=== PATIENT | female | born 1990 | race Caucasian/White ===

== ENCOUNTER 2024-12-13 22:15 | Emergency (ER) | payer OTHER, SELFPAY ==
[2024-12-13 22:16] VITALS: BMI 39.1
[2024-12-13 22:25] VITALS: BP 124/87; PULSE 84; RESP 20; TEMP 36.9; O2SAT 96
--- NOTE | 2024-12-13 22:27 | XR_ITS ---
Examination: CT abdomen and pelvis without contrast. Coronal 3-D reconstructions. Sagittal 2-D reconstructions. Date and time of exam: December 13, 2024, 11:32 p.m. INDICATIONS: Severe flank pain, urinary tract infections 2 weeks CTDI: vol (mGy): 16 DLP: (mGycm): 968 Technique: Axial images of the abdomen have been obtained, 3 mm slice thickness Intravenous contrast material has not been administered. Low dose protocols were performed. One or more of the following dose reduction techniques were used; automated exposure control, adjustment of the mA and/or KV according to patient size, use of iterative reconstruction technique. Findings: Diffuse fatty infiltration throughout the liver No gallstones No pancreatic or adrenal mass Mild right hydronephrosis secondary to 4 mm distal right ureterovesical junction calculus Normal appendix No bowel obstruction No pelvic mass No bladder mass Intact osseous structures IMPRESSION: Mild right hydronephrosis secondary to a 4 mm distal right ureteral vesicle junction calculus
--- NOTE | 2024-12-13 22:28 | PD.EDRME ---
Rapid Medical Screening Exam RME Arrival date/time: 12/13/24 22:15 This is a case of 34-year-old female with no medical history came into the emergency room due to bilateral flank pain radiating to the abdomen associated with nausea vomiting patient was recently diagnosed with urinary tract infection finished a course of antibiotic is still with dysuria increased frequency and urgency no hematuria persistence of the symptoms this patient decided to start consult here in the emergency room Chief Complaint: Urogenital-Female Time Seen by Provider: 12/13/24 22:18 Vital signs: Vital Signs Temperature 98.4 F 12/13/24 22:25 Pulse Rate 84 12/13/24 22:25 Respiratory Rate 20 12/13/24 22:25 Blood Pressure 124/87 H 12/13/24 22:25 Pulse Oximetry (%) 96 12/13/24 22:25 Oxygen Delivery Method Room Air 12/13/24 22:25
[2024-12-13 22:52] LABS: Basophils # (Auto) 0.1 Thou/mm3 (0.0-0.2); Basophils % (Auto) 0 % (0-2.5); Eosinophils # (Auto) 0.2 Thou/mm3 (0.0-0.5); Eosinophils % (Auto) 1 % (0-10); Hematocrit 43.0 % (36.0-46.0); Hemoglobin 14.8 g/dL (12.0-16.0); Immature Granulocytes Auto 0.03 Thou/mm3 (0.00-0.00); Lymphocytes # (Auto) 2.3 Thou/mm3 (1.0-4.8); Lymphocytes % (Auto) 18 % (10-50); Mean Corpuscular HGB Conc 34.4 g/dl (31.0-37.0); Mean Corpuscular Hemoglobin 30.4 pg (25.0-35.0); Mean Corpuscular Volume 88 fL (80-100); Monocytes # (Auto) 1.3 Thou/mm3 (0.0-0.8); Monocytes % (Auto) 10 % (0-12); Neutrophils # (Auto) 9.4 Thou/mm3 (1.8-7.7); Neutrophils % (Auto) 71 % (37-80); Nucleated Red Blood Cell # 0.00 Thou/mm3 (0.00-0.00); Nucleated Red Blood Cell % 0 /100 WBC (0); Platelet Count 354 Thou/mm3 (140-440); RDW Standard Deviation 42.2 fL (36.4-46.3); Red Blood Count 4.87 Miln/mm3 (4.00-5.20); White Blood Count 13.3 Thou/mm3 (3.6-11.0)
[2024-12-13 23:09] LABS: Alanine Aminotransferase 41 U/L (10-49); Albumin, Serum 4.7 gm/dL (3.5-5.0); Albumin/Globulin Ratio 1.9 (1.2-2.2); Alkaline Phosphatase 110 U/L (46-116); Anion Gap 11 (7-16); Aspartate Amino Transferase 24 U/L (0-34); BUN/Creatinine Ratio 8 Ratio (12-20); Bilirubin,Total 0.5 mg/dL (0.3-1.2); Blood Urea Nitrogen 11 mg/dL (9-23); Calcium 9.8 mg/dL (8.3-10.6); Calcium (Corrected) 9.8 mg/dL (8.5-10.1); Carbon Dioxide 25.5 mMol/L (20.0-31.0); Chloride 106 mMol/L (98-107); Creatinine (Component) 1.4 mg/dL (0.6-1.3); Estimated Creatinine Clearance 74.3 mL/min (>60); Globulin 2.5 gm/dL (2.3-3.5); Glucose 101 mg/dL (74-106); Lipase 29 U/L (12-53); Osmolality,Calculated 282 (275-295); Potassium 3.8 mMol/L (3.4-5.1); Sodium 142 mMol/L (136-145); Total Protein 7.2 gm/dL (5.7-8.2); eGFR 51 See Note
--- NOTE | 2024-12-13 23:17 | EDNOTE_ITS ---
ED Female Urogenital RME/HPI General Chief complaint: Urogenital-Female Stated complaint: RIGHT FLANK PAIN Time Seen by Provider: 12/13/24 22:18 Arrival date/time: 12/13/24 22:15 RME / HPI RME / HPI Narrative: 12/13/24 22:15 This is a case of 34-year-old female with no medical history came into the emergency room due to bilateral flank pain radiating to the abdomen associated with nausea vomiting patient was recently diagnosed with urinary tract infection finished a course of antibiotic is still with dysuria increased frequency and urgency no hematuria persistence of the symptoms this patient decided to start consult here in the emergency room DR. LAW MAIN ED EVALUATION: Patient is on second course of ABX for UTI characterized initially by urinary frequency, slight dysuria and urgency. Reports sudden right flank pain radiating to the right groin associated with 1 episode of emesis. No fever or chills. No diarrhea. PMH: Previous rare UTI's, Anxiety, PCOS, PSH: Non-contributory Allergies: None reported Social: Occasional alcohol consumption, No tobacco or illicit drug abuse Related Data Previous Rx's ?Medication ?Instructions ?Recorded promethazine 25 mg tablet 25 mg PO TID PRN nausea and 12/14/24 vomiting #20 tabs tamsulosin 0.4 mg capsule (Flomax) 0.4 mg PO QDAY 10 d ays #10 caps 12/14/24 Allergies Allergy/AdvReac Type Severity Reaction Status Date / Time NKA* Allergy Uncoded 02/27/10 12:15 Review of Systems Review of Systems Systems Reviewed: All systems reviewed, normal except as documented Past Medical History Past Medical History REPRODUCTIVE: Positive Hx Polycystic Ovarian Syndrome PSYCHO/SOCIAL: Positive Anxiety Social History SMOKING STATUS: Never smoker ED Exam Narrative Physical exam: GEN. APPEARANCE: The patient is alert awake oriented X-3 under moderate distress c/o right flank pain, lying down comfortably, does not look ill/toxic. Patient has good eye contact. Patient is cooperative. C/o nausea and right flank pain. VITALS: All vitals were reviewed and the pulse ox is 96%, which is normal according to my interpretation HEENT: Normocephalic, atraumatic and nontender. Pupils are equal and reactive. Oral mucosa is moist. NECK: Supple, nontender, no meningismus, no JVD. There is no thyromegaly and no lymphadenopathy. CHEST: Nontender on palpation no deformity and no crepitus. CARDIOVASCULAR: Heart regular rhythm, no murmur or gallop rub or extra beats. LUNGS: Clear to auscultation bilaterally with symmetrical chest rise. No laboring tachypnea or wheezing. No intercostal subcostal retraction. No rales and no rhonchi. ABDOMEN: Soft, obese with noted tenderness to RLQ extending towards the right flank, no McBurney's Point tenderness, no guarding or rebound tenderness. There are no abnormal masses palpated. No pulsatile masses or bruits. Active and normal bowel sounds. EXTREMITIES:.Normal inspection and palpation. No edema. No cyanosis. Patient is able to move all 4 extremities well SKIN: Warm and dry, no rashes noted. MUSCULOSKELETAL: No lumbar or midline bony tenderness. There is no CVA tenderness. No paraspinal muscle spasm or tenderness. NEURO: Cranial nerves II through XII grossly intact. There are no focal neurologic deficits noted. GCS is 15 PSYCHIATRIC: Patient is in normal mood and affect, cooperative. LYMPHATICS: No major lymphadenopathy noted. Course Quality Measures none Orders Category Date Time Status CT abdomen pelvis wo con Stat Exams 12/13/24 22:27 Completed CBC Stat Lab 12/13/24 22:43 Completed Comprehensive Metabolic Panel Stat Lab 12/13/24 22:43 Completed HCG Qualitative,Urine Stat Lab 12/13/24 23:28 Completed Lipase Stat Lab 12/13/24 22:43 Completed Urinalysis Stat Lab 12/13/24 23:28 Completed Morphine* Inj Med 12/13/24 23:21 Discontinued 4 mg IVP X1 ONE Ondansetron Inj [Zofran Inj] Med 12/13/24 23:20 Discontinued 4 mg IVP X1 ONE Sodium Chloride 0.9% 1000 ml [Ns] 1,000 ml Med 12/13/24 23:20 Discontinued IV 999 mls/hr Tamsulosin HCl [Flomax] Med 12/14/24 01:01 Discontinued 0.4 mg PO X1 ONE Vital Signs Vital signs: Vital Signs Temperature 98.4 F 12/13/24 22:25 Pulse Rate 84 12/13/24 22:25 Respiratory Rate 20 12/13/24 22:25 Blood Pressure 124/87 H 12/13/24 22:25 Pulse Oximetry (%) 96 12/13/24 22:25 Oxygen Delivery Method Room Air 12/13/24 22:25 Urogenital - Female MDM Narrative MDM Narrative:: Scribe Attestation: I, Robyn Lafleur, am scribing for and in the presence of Dr. Law. Provider Notation: Although this document has been carefully reviewed, there may still be some phonetic and other typographical errors. These errors are purely grammatical due to imperfections in the software program and should not be construed in any way to compromise the substance of the patient's medical care during this visit. Patient is on second course of ABX for UTI characterized initially by urinary frequency, slight dysuria and urgency. Reports sudden right flank pain radiating to the right groin associated with 1 episode of emesis. Please see PE findings. Laboratory markers, including CBC and serum chemistries, demonstrate marginally elevated WBC of 13.3, normal renal function, and essentially normal urine. Patient hydrated with normal saline, received low-dose narcotic analgesics/anti- emetics with mild to moderate relief. Patient underwent CT scan which demonstrates 4 mm atone at the UVJ without significant hydronephrosis. Upon s erial evaluation, patient observed to be resting comfortably, considered stable for discharged on narcotic analgesics and Flomax, which close F/U with PMD recommended. Patient data External records reviewed:: [facility] previous records (No prior ED records available for review) Clinical information provided by:: patient Social determinants that could affect healthcare access:: alcohol use Patient has the following chronic illnesses:: PCOS How is presenting disease/condition affected by chronic disease/condition?: exacerbated by Evaluation data The following diagnostics were reviewed and interpreted by me:: lab results and radiology exam(s) Lab and/or radiology exams considered but not ordered:: None Interpretation Summary: RADIOLOGY Abdomen/Pelvis CT: Findings: Diffuse fatty infiltration throughout the liver No gallstones No pancreatic or adrenal mass Mild right hydronephrosis secondary to 4 mm distal right ureterovesical junction calculus Normal appendix No bowel obstruction No pelvic mass No bladder mass Intact osseous structures IMPRESSION: Mild right hydronephrosis secondary to a 4 mm distal right ureteral vesicle junction calculus Medications / Prescriptions Medications or Prescriptions considered but not ordered:: None Medication administrations:: Medication Administration History Discontinued Medications Sodium Chloride (Ns) 1,000 mls @ 999 mls/hr IV .Q1H1M ONE Stop: 12/14/24 00:20 Last Admin: 12/14/24 00:07 Dose: 999 mls/hr Documented By: JOSUE Morphine Sulfate (Morphine Sulf Inj 4 Mg/Ml Vial) 4 mg IVP X1 ONE Stop: 12/13/24 23:22 Last Admin: 12/14/24 00:09 Dose: 4 mg Documented By: JOSUE Ondansetron HCl (Ondansetron Inj 2 Mg/Ml Inj 2 Ml) 4 mg IVP X1 ONE; Protocol Stop: 12/13/24 23:21 Last Admin: 12/14/24 00:09 Dose: 4 mg Documented By: JOSUE Tamsulosin HCl (Tamsulosin Hcl 0.4 Mg Capsule) 0.4 mg PO X1 ONE Stop: 12/14/24 01:02 See above if any Consultations Consultation(s) initiated? (list below): No Diagnosis Urogenital Female Differential Diagnosis: cystitis (ureteralithiasis, renal calculi, pyelonephritis) Most likely diagnosis given after review of the tests above:: Ueterolithiasis, Right Kidney stone Admission Indicated Admission indicated?: not indicated Explain why admission is indicated or not indicated:: Patient does not meet admission criteriaa Admission Request Was there a request for admission?: No Disposition Plan Disposition Plan: Discharge Discharge Attestation Discharge Attestation: The patient and all family members were given an opportunity to ask questions and understood the discharge instructions. Discharge instructions specifically effects, indications for sooner follow up or return to the emergency department, and the expected course of current diagnosis. Patient condition: Stable Discharge Plan Plan Patient Disposition: HOME (Self Care) Discharge Disposition comment: Stable Prescriptions/Referrals Prescriptions/Med Rec: New promethazine 25 mg tablet 25 mg PO TID PRN (Reason: nausea and vomiting) Qty: 20 0RF tamsulosin [Flomax] 0.4 mg capsule 0.4 mg PO QDAY 10 Days Qty: 10 0RF Referrals: No Primary/Family,Physician [Primary Care Provider] - In 1 week Problem List Clinical Impression: Ureterolithiasis, Kidney stone on right side Impression comment: Urolithiasis Patient/Caregiver Discharge Instructions Discharge Activity: activity as tolerated Diet Instructions: Force fluids Education Materials: Understanding Kidney Stones, Kidney Stones Your Evaluation, Preventing Kidney Stones, ED Kidney Stone w/ Colic Additional Instructions: Follow-up/medication as directed/follow-up with primary care doctor in 5 to 7 days. Return if worsening. Print Language: Kazakh Stand Alone Forms: Patsy Award Info., Patient Portal Info Letter
[2024-12-13 23:47] LABS: Collection Type, Urine Clean Catch
[2024-12-13 23:57] VITALS: BP 146/87; PULSE 78; RESP 16; O2SAT 96
[2024-12-13 23:58] LABS: Bacteria,Urine Rare; Bilirubin,Urine Negative (Negative); Blood,Urine Trace (Negative); Clarity,Urine Clear (Clear/Hazy); Color,Urine Yellow (Lt Yel-Yel); Glucose, Urine Negative (Negative); Ketones,Urine Negative (Negative); Leukocyte Esterase,Urine Negative (Negative); Nitrite,Urine Negative (Negative); PH,Urine 6.5 (5.0-7.0); Protein,Urine Negative (Neg - Trace); RBC,Urine 1 /hpf (0-3); Specific Gravity,Urine 1.008 (1.001-1.035); Squamous Epithelial Cell,Urine 2 /hpf (0-5); Urobilinogen,Urine Negative mg/dL (0.0-1.0); WBC,Urine 1 /hpf (0-5)
[2024-12-13 23:59] LABS: HCG Qualitative,Urine Negative
[2024-12-14] MEDS: SODIUM CHLORIDE 0.9% 1000 ML 1,000 ML 999 ML IV (00:07)
[2024-12-14] MEDS: ONDANSETRON INJ 2 MG/ML INJ 2 ML 4 MG IVP (00:09)
[2024-12-14] MEDS: MORPHINE SULF INJ 4 MG/ML VIAL IVP (00:09)
[2024-12-14 00:31] VITALS: BP 167/78; PULSE 69; RESP 16; O2SAT 96
[2024-12-14 01:01] VITALS: BP 148/76; PULSE 71; RESP 16; O2SAT 96
[2024-12-14 01:40] VITALS: BP 148/72; PULSE 78; RESP 16; TEMP 36.3; O2SAT 98
== END 2024-12-14 01:41 | disposition home or self-care (01) ==
PROVIDERS: Nurse Practitioner Family; Emergency Provider Emergency Medicine
DX: N13.6 Pyonephrosis (principal); E28.2 Polycystic ovarian syndrome; Z87.440 Personal history of urinary (tract) infections
CPT/HCPCS: 36415; 74176; 80053; 81001; 81025; 83690; 85025; 96374; 96375; 99283; J2270; J2405; J7030